=== PATIENT | female | born 1990 | race African-American/Black ===

== ENCOUNTER 2023-05-14 09:49 | Emergency (ER) | payer SELFPAY ==
[2023-05-14] MEDS ORDERED: Ketorolac Tromethamine 30 MG/ML VIAL ONE (11:57)
== END 2023-05-14 12:01 | disposition home or self-care (01) ==
LOC: CSHERS 09:49
DX: K02.9 Dental caries, unspecified (principal); F17.210 Nicotine dependence, cigarettes, uncomplicated
CPT/HCPCS: 96372; 99282; J1885

== ENCOUNTER 2024-09-04 07:32 | Emergency (ER) | payer SELFPAY ==
[2024-09-04] MEDS ORDERED: Ibuprofen 200 MG TAB ONE (08:01)
== END 2024-09-04 08:08 | disposition home or self-care (01) ==
LOC: CSHERS 07:32
DX: N64.9 Disorder of breast, unspecified (principal); F17.210 Nicotine dependence, cigarettes, uncomplicated
CPT/HCPCS: 99283